=== PATIENT | male | born 1985 | race Caucasian/White ===

== ENCOUNTER 2018-01-04 16:42 | Emergency (ER) | payer BC ==
[2018-01-04 16:52] VITALS: BP 155/91
[2018-01-04] MEDS ORDERED: LORazepam 2 MG/ML SDV IVPUSH STA (17:19)
--- NOTE | 2018-01-04 17:19 | EDM.PDOC ---
ED HPI GENERAL MEDICAL PROBLEM - General Chief Complaint: Exposure to Heat or Cold Stated Complaint: POSS HEAT STROKE Time Seen by Provider: 01/04/18 16:55 Source of Information: Reports: Patient, Family () History Limitations: Reports: No Limitations - History of Present Illness INITIAL COMMENTS - FREE TEXT/NARRATIVE: The patient states that he developed the feeling that his heart was racing, lightheadedness, mild shortness of breath, and panicky, while working outside in 85 temperature, around 16:30 this afternoon. He believes that he is suffering from heat exhaustion or heat stroke, and that he is dehydrated. He states that he felt a little better after putting cold water bottles under his armpits. Here in the ED, he states that he is still feeling lightheaded, panicky and has a dry mouth. He states that he had similar symptoms about 2 years ago, was seen in an ER, and felt better after receiving IV fluid. The patient has a history of anxiety disorder, currently on Xanax 0.5 mg as needed, most recently one tablet here in the ED, but previously about one week ago, Wellbutrin, and escitalopram. He is on metoprolol not only for hypertension , but also to minimize his tachycardia when he has feelings of anxiety. He does not believe that his current symptoms are due to anxiety. The patient's PCP is Nata Doyle. - Related Data Allergies Allergy/AdvReac Type Severity Reaction Status Date / Time pollen Allergy Cough Uncoded 01/04/18 16:52 Home Meds: Home Meds ALPRAZolam [Alprazolam] 0.5 mg PO ASDIRECTED PRN 01/04/18 [History] Escitalopram Oxalate 1 tab PO DAILY 01/04/18 [History] Metoprolol Tartrate 1 tab PO DAILY 01/04/18 [History] buPROPion HCl [Wellbutrin SR] 150 mg PO BID 01/04/18 [History] Past Medical History Cardiovascular History: Reports: Hypertension Psychiatric History: Reports: Anxiety, Depression - Past Surgical History HEENT Surgical History: Reports: Tonsillectomy Social & Family History - Family History Family Medical History: Noncontributory - Tobacco Use Smoking Status *Q: Never Smoker Tobacco Use Within Last Twelve Months: Smokeless Tobacco (Chews 1 can/day) - Caffeine Use Caffeine Use: Reports: None - Alcohol Use Alcohol Use History: Yes Alcohol Use Frequency: Socially (to excess on weekends) - Recreational Drug Use Recreational Drug Use: No - Living Situation & Occupation Living situation: Reports: , with Spouse Occupation: Employed (Scaffolding) ED ROS GENERAL - Review of Systems Review Of Systems: ROS reveals no pertinent complaints other than HPI. ED EXAM, GENERAL - Physical Exam Exam: See Below Exam Limited By: No Limitations General Appearance: Alert, WD/WN, No Apparent Distress, Anxious Eye Exam: Bilateral Eye: EOMI, Normal Inspection Ears: Normal External Exam, Hearing Grossly Normal Nose: Normal Inspection, No Blood Throat/Mouth: Normal Inspection, Normal Lips, Normal Voice, No Airway Compromise Head: Atraumatic, Normocephalic Neck: Normal Inspection, Full Range of Motion Respiratory/Chest: No Respiratory Distress, Lungs Clear, Normal Breath Sounds, No Accessory Muscle Use Cardiovascular: Normal Peripheral Pulses, Regular Rate, Rhythm, No Edema, No Gallop, No JVD, No Murmur, No Rub Peripheral Pulses: 4+: Radial (L), Radial (R) GI/Abdominal: Normal Bowel Sounds, Soft, Non-Tender, No Organomegaly, No Distention, No Abnormal Bruit, No Mass (Male) Exam: Deferred Rectal (Males) Exam: Deferred Back Exam: Normal Inspection, Full Range of Motion, NT Extremities: Normal Inspection, Normal Range of Motion, Non-Tender, Normal Capillary Refill, No Pedal Edema Neurological: Alert, Oriented, CN II-XII Intact, Normal Cognition, No Motor/ Sensory Deficits Psychiatric: Anxious Skin Exam: Warm, Dry, Intact, Normal Color, No Rash EKG INTERPRETATION EKG Date: 01/04/18 Time: 17:51 Rhythm: NSR Rate (Beats/Min): 65 [place]: Normal P-Wave: Present (possible LAE) QRS: Normal ST-T: Normal QT: Normal Comparison: NA - No Prior EKG Course - Vital Signs Last Recorded V/S: Last Vital Signs Temp 36.5 C 01/04/18 16:49 Pulse 72 01/04/18 16:49 Resp 20 01/04/18 16:49 BP 155/91 H 01/04/18 16:49 Pulse Ox 99 01/04/18 16:49 Orthostatic Blood Pressure [ 147/83 Standing] Orthostatic Blood Pressure [ 148/92 Sitting] Orthostatic Blood Pressure [ 151/84 Supine] - Orders/Labs/Meds Orders: Active Orders 24 hr Category Date Time Status EKG Documentation Completion [RC] STAT Care 01/04/18 17:16 Active Orthostatic Vital Signs [RC] STAT Care 01/04/18 17:16 Active UA W/MICROSCOPIC [URIN] Stat Lab 01/04/18 17:45 Ordered Labs: Laboratory Tests 01/04/18 01/04/18 01/04/18 Range/Units 17:30 17:44 17:44 WBC 5.41 (4.23-9.07) K/mm3 RBC 5.15 (4.63-6.08) M/mm3 Hgb 15.7 (13.7-17.5) gm/L Hct 44.4 (40.1-51.0) % MCV 86.2 (79.0-92.2) fl MCH 30.5 (25.7-32.2) pg MCHC 35.4 (32.2-35.5) g/dl RDW Std Deviation 39.3 (35.1-43.9) fL Plt Count 262 (163-337) K/mm3 MPV 9.1 L (9.4-12.3) fl Neutrophils % (Manual) 82 H (40-60) % Band Neutrophils % 0 (0-10) % Lymphocytes % (Manual) 12 L (20-40) % Atypical Lymphs % 0 % Monocytes % (Manual) 2 (2-10) % Eosinophils % (Manual) 4 (0.8-7.0) % Basophils % (Manual) 0 L (0.2-1.2) Platelet Estimate Adequate Plt Morphology Comment Normal RBC Morph Comment Normal PT 11.4 (9.5-12.1) SECONDS INR 1.05 APTT 29 (24-31) SECONDS D-Dimer, Quantitative < 0.19 L (0.19-0.50) mg/L Puncture Site Rt radial ABG pH 7.47 H (7.35-7.45) ABG pCO2 35.1 (35.0-45.0) mmHg ABG pO2 88.0 (80.0-100.0) mmHg ABG HCO3 25.1 (22.0-26.0) meq/L ABG O2 Saturation 97.3 H (96.0-97.0) % ABG Base Excess 2.3 H (-2-2.0) A-a Gradient 3 mmHg O2 Delivery Device Room air Oxygen Flow Rate 0.0 FiO2 21.00 (21.00-100.00) % Sodium (136-145) mEq/L Potassium (3.5-5.1) mEq/L Chloride (98-107) mEq/L Carbon Dioxide (21-32) mEq/L Anion Gap (5-15) BUN (7-18) mg/dL Creatinine (0.7-1.3) mg/dL Est Cr Clr Drug Dosing mL/min Estimated GFR (MDRD) (>60) mL/min BUN/Creatinine Ratio (14-18) Glucose (74-106) mg/dL Calcium (8.5-10.1) mg/dL Magnesium (1.8-2.4) mg/dl Total Bilirubin (0.2-1.0) mg/dL AST (15-37) U/L ALT (16-63) U/L Alkaline Phosphatase (46-116) U/L Troponin I (0.00-0.056) ng/mL NT-Pro-B Natriuret Pep (0-125) pg/mL Total Protein (6.4-8.2) g/dl Albumin (3.4-5.0) g/dl Globulin gm/dL Albumin/Globulin Ratio (1-2) TSH 3rd Generation (0.358-3.74) uIU/mL Urine Color (Yellow) Urine Appearance (Clear) Urine pH (5.0-8.0) Ur Specific [place] (1.005-1.030) Urine Protein (Negative) Urine Glucose (UA) (Negative) Urine Ketones (Negative) Urine Occult Blood (Negative) Urine Nitrite (Negative) Urine Bilirubin (Negative) Urine Urobilinogen (0.2-1.0) Ur Leukocyte Esterase (Negative) Urine RBC (0-5) /hpf Urine WBC (0-5) /hpf Ur Epithelial Cells (0-5) /hpf Urine Bacteria (FEW) /hpf Urine Mucus (FEW) /hpf 01/04/18 01/04/18 01/04/18 Range/Units 17:44 17:44 17:45 WBC (4.23-9.07) K/mm3 RBC (4.63-6.08) M/mm3 Hgb (13.7-17.5) gm/L Hct (40.1-51.0) % MCV (79.0-92.2) fl MCH (25.7-32.2) pg MCHC (32.2-35.5) g/dl RDW Std Deviation (35.1-43.9) fL Plt Count (163-337) K/mm3 MPV (9.4-12.3) fl Neutrophils % (Manual) (40-60) % Band Neutrophils % (0-10) % Lymphocytes % (Manual) (20-40) % Atypical Lymphs % % Monocytes % (Manual) (2-10) % Eosinophils % (Manual) (0.8-7.0) % Basophils % (Manual) (0.2-1.2) Platelet Estimate Plt Morphology Comment RBC Morph Comment PT (9.5-12.1) SECONDS INR APTT (24-31) SECONDS D-Dimer, Quantitative (0.19-0.50) mg/L Puncture Site ABG pH (7.35-7.45) ABG pCO2 (35.0-45.0) mmHg ABG pO2 (80.0-100.0) mmHg ABG HCO3 (22.0-26.0) meq/L ABG O2 Saturation (96.0-97.0) % ABG Base Excess (-2-2.0) A-a Gradient mmHg O2 Delivery Device Oxygen Flow Rate FiO2 (21.00-100.00) % Sodium 139 (136-145) mEq/L Potassium 3.8 (3.5-5.1) mEq/L Chloride 102 (98-107) mEq/L Carbon Dioxide 27 (21-32) mEq/L Anion Gap 13.8 (5-15) BUN 15 (7-18) mg/dL Creatinine 1.2 (0.7-1.3) mg/dL Est Cr Clr Drug Dosing 101.72 mL/min Estimated GFR (MDRD) > 60 (>60) mL/min BUN/Creatinine Ratio 12.5 L (14-18) Glucose 101 (74-106) mg/dL Calcium 9.5 (8.5-10.1) mg/dL Magnesium 1.9 (1.8-2.4) mg/dl Total Bilirubin 0.6 (0.2-1.0) mg/dL AST 38 H (15-37) U/L ALT 73 H (16-63) U/L Alkaline Phosphatase 47 (46-116) U/L Troponin I < 0.017 (0.00-0.056) ng/mL NT-Pro-B Natriuret Pep 31 (0-125) pg/mL Total Protein 7.6 (6.4-8.2) g/dl Albumin 4.3 (3.4-5.0) g/dl Globulin 3.3 gm/dL Albumin/Globulin Ratio 1.3 (1-2) TSH 3rd Generation 2.897 (0.358-3.74) uIU/mL Urine Color Yellow (Yellow) Urine Appearance Clear (Clear) Urine pH 8.5 H (5.0-8.0) Ur Specific [place] 1.015 (1.005-1.030) Urine Protein 1+ H (Negative) Urine Glucose (UA) Negative (Negative) Urine Ketones Negative (Negative) Urine Occult Blood Negative (Negative) Urine Nitrite Negative (Negative) Urine Bilirubin Negative (Negative) Urine Urobilinogen 0.2 (0.2-1.0) Ur Leukocyte Esterase Negative (Negative) Urine RBC Not seen (0-5) /hpf Urine WBC Not seen (0-5) /hpf Ur Epithelial Cells 0-5 (0-5) /hpf Urine Bacteria Not seen (FEW) /hpf Urine Mucus Not seen (FEW) /hpf Meds: Medications Discontinued Medications Generic Name Dose Route Start Last Admin Trade Name Freq PRN Reason Stop Dose Admin Sodium Chloride 1,000 mls @ 150 mls/hr 01/04/18 17:30 01/04/18 18:03 Normal Saline IV 150 mls/hr ASDIRECTED CHA Administration Lorazepam 1 mg 01/04/18 17:19 01/04/18 18:03 Ativan IVPUSH 01/04/18 17:20 1 mg ONETIME STA Administration - Re-Assessments/Exams Free Text/Narrative Re-Assessment/Exam: 01/04/18 17:18 The patient is concerned that he is suffering from heat exhaustion or heat stroke, however, he is not hyperthermic, and his symptoms are not consistent with heat exhaustion. He is very clearly suffering from an anxiety attack, however, he has poor insight. I have therefore ordered a hyperventilation workup. 01/04/18 17:20 2-view chest radiograph reviewed. Cardiac silhouette is within normal limits. No pulmonary vascular congestion. No pleural effusions. No focal infiltrate. No pneumothorax. Scoliosis incidentally noted. Formal read per the Radiologist pending. 01/04/18 17:44 The patient is not orthostatic. 01/04/18 19:03 Test results discussed with the patient and his . The ABG confirmed that the patient was hyperventilating. Known medical causes of hyperventilation have been evaluated and ruled out, therefore, by a process of elimination, the patient's hyperventilation today is due to a panic attack. The patient is already being treated for anxiety disorder, although he acknowledges that Ms. Doyle doubled the dose of one of his anti-anxiety medications, which he has not yet started. The patient may safely be discharged home, with no new medications or changes in his current medications. Departure - Departure Time of Disposition: 19:06 Disposition: Home, Self-Care 01 Condition: Good Clinical Impression: Hyperventilation syndrome, Panic attack - Discharge Information Instructions: Panic Attack, [id number], Living With Anxiety Referrals: Nata Doyle PA-C [Primary Care Provider] - Forms: ED Department Discharge Additional Instructions: You were seen in the emergency room for palpitations, shortness of breath, lightheadedness, and feeling panicky. Workup in the ER included blood work, an arterial blood gas, a urinalysis, positional blood pressure checks, a chest x-ray, and an ECG. The arterial blood gas confirmed that you were hyperventilating. Known medical causes of hyperventilation, including hypocalcemia, hypoglycemia, hyperthyroidism, liver failure, severe anemia, sepsis, acute coronary event, pneumothorax, pneumonia, dysrhythmia, pulmonary embolus, or CHF, have all been ruled out. By a process of elimination, your hyperventilation was MOST LIKELY caused by a panic attack. You are already under treatment for anxiety disorder. One of your antianxiety medicines was recently doubled. We recommend that you start taking this newer dose. If you still have no relief of your symptoms after 3-4 weeks, please follow-up with your prescribing provider, Nata Doyle, to discuss further treatment options. If any other problems, please do not hesitate to return to the ER. - My Orders Last 24 Hours: My Active Orders 01/04/18 17:16 EKG Documentation Completion [RC] STAT Orthostatic Vital Signs [RC] STAT 01/04/18 17:45 UA W/MICROSCOPIC [URIN] Stat - Assessment/Plan Last 24 Hours: My Active Orders 01/04/18 17:16 EKG Documentation Completion [RC] STAT Orthostatic Vital Signs [RC] STAT 01/04/18 17:45 UA W/MICROSCOPIC [URIN] Stat
[2018-01-04] MEDS ORDERED: Sodium Chloride 0.9% 1,000 ML IV SCH (17:30)
--- NOTE | 2018-01-05 08:18 | CR ---
Chest: Two views of the chest were obtained. Comparison: Prior chest x-ray of 12/05/14. Heart size and mediastinum are normal. Lungs are clear. Minimal scoliosis is noted within the spine. Slight anterior wedge deformities are noted within the lower thoracic spine which are felt to be developmental. Impression: 1. Incidental findings. Nothing acute is seen on two-view chest x-ray. Diagnostic code #2
== END 2018-01-04 19:16 | disposition home or self-care (01) ==
LOC: JD.ED 16:42
DX: F41.0 Panic disorder [episodic paroxysmal anxiety] (principal); F45.8 Other somatoform disorders; I10 Essential (primary) hypertension; F32.9 Major depressive disorder, single episode, unspecified; F41.9 Anxiety disorder, unspecified; F17.200 Nicotine dependence, unspecified, uncomplicated
CPT/HCPCS: 36415; 36600; 71046; 80053; 81001; 82803; 83735; 83880; 84443; 84484; 85007; 85027; 85379; 85610; 85730; 93005; 96361; 96374; 99284; J2060; J7040

== ENCOUNTER 2023-02-11 18:59 | Emergency (ER) | payer BC ==
[2023-02-11] MEDS ORDERED: Lidocaine 1% 10 ML MDV INJECT ONE ×2 (19:25→20:09)
[2023-02-11 19:38] VITALS: PULSE 85
[2023-02-11] MEDS ORDERED: Lidocaine/EPINEPHrine/Tetracaine Soln 1 ML TOP ONE (19:48)
[2023-02-11 21:44] VITALS: BP 157/97
== END 2023-02-11 21:25 | disposition home or self-care (01) ==
LOC: JD.ED 18:59
DX: S61.212A Laceration without foreign body of right middle finger without damage to nail, initial encounter (principal); S61.211A Laceration without foreign body of left index finger without damage to nail, initial encounter; I10 Essential (primary) hypertension; Z91.09 Other allergy status, other than to drugs and biological substances; W11.XXXA Fall on and from ladder, initial encounter; Y92.009 Unspecified place in unspecified non-institutional (private) residence as the place of occurrence of the external cause
CPT/HCPCS: 12002; 73130-26-LT; 73130-LT; 99283; J3490